=== PATIENT | male | born 1995 | race Caucasian/White ===

== ENCOUNTER 2017-11-08 21:50 | Emergency (ER) | payer SELFPAY ==
[2017-11-08] MEDS ORDERED: FENTANYL CITR 100 MCG/2 ML ONE (23:37)
[2017-11-08] MEDS ORDERED: PANTOPRAZOLE 40 MG INJ ONE (23:37)
[2017-11-08] MEDS ORDERED: NA CHLORIDE 0.9% 1,000 ML ONE (23:37)
[2017-11-08] MEDS ORDERED: ONDANSETRON 4 MG/2 ML VIAL ONE (23:37)
[2017-11-08 23:42] LABS: Absolute Lymphocytes (CBC) 1.8 K/uL (0.7-4.9); Absolute Monocytes 0.3 K/uL (0.1-1.3); Absolute Neutrophil 5.8 K/uL (1.8-8.0); Basophils % 0.9 % (0-1.3); Eosinophils % 5.6 % (0-4.4); Lymphocytes % 21.6 % (15.3-44.8); MCH 32.3 pg (27.0-35.0); MCV 91.2 fL (80-100); MPV 9.7 fL (7.6-11.3); Monocytes % 3.7 % (3.3-12.3); RBC Red Blood Cell Count 4.94 M/uL (4.33-5.43)
[2017-11-08 23:45] LABS: Protime INR 1.01
[2017-11-08 23:50] LABS: Urine Bacteria <20 /HPF (NONE SEEN); Urine RBC NONE SEEN /HPF (NONE SEEN)
[2017-11-08 23:51] LABS: Urine Culture Reflex Order NOT NEEDED
[2017-11-08 23:54] LABS: Barbiturates NEGATIVE (NEGATIVE); Benzodiazepines NEGATIVE (NEGATIVE); Cocaine NEGATIVE (NEGATIVE); METHAMPHETAM NEGATIVE (NEGATIVE); Methadone NEGATIVE (NEGATIVE); Opiates NEGATIVE (NEGATIVE); Phencyclidine NEGATIVE (NEGATIVE); THC Cannibis POSITIVE (NEGATIVE)
[2017-11-09 00:25] LABS: ALT/SGPT 25 U/L (12-78); AST/SGOT 21 U/L (15-37); Albumin 5.2 g/dL (3.4-5.0); Alkaline Phosphatase 63 U/L (45-117); Amylase Level 86 U/L (25-115); BUN Blood Urea Nitrogen 11 mg/dL (7-18); Bicarbonate 33 mmol/L (21-32); Bilirubin Direct 0.2 mg/dL (0-0.2); Bilirubin Total 0.8 mg/dL (0.2-1.0); Glucose Level 98 mg/dL (74-106); Lipase 317 U/L (73-393); Potassium 3.7 mmol/L (3.5-5.1); Sodium Level 141 mmol/L (136-145)
[2017-11-09 00:41] LABS: Alcohol Serum/Plasma < 3 mg/dL (0-3)
--- NOTE | 2017-11-09 00:59 | ER ---
Nurse's Notes [facility] Name: Edward Wilson Age: 22 yrs Sex: Male : 1995 Arrival Date: 11/08/2017 Time: 21:55 Bed 27 Private MD: Diagnosis: Vomiting;Abdominal tenderness;Gastrointestinal hemorrhage, unspecified Presentation: 11/08 23:48 Presenting complaint: Patient states: vomiting blood. Transition of care: patient was tl3 not received from another setting of care. Risk Assessment: Do you want to hurt yourself or someone else? Patient reports no desire to harm self or others. Initial Sepsis Screen: Does the patient meet any 2 criteria? No. Patient's initial sepsis screen is negative. Does the patient have a suspected source of infection? No. Patient's initial sepsis screen is negative. Care prior to arrival: None. 23:48 Method Of Arrival: Ambulatory tl3 23:48 Acuity: PJ 3 tl3 11/09 00:14 Onset of symptoms was November 2017. mg2 Triage Assessment: 11/08 23:50 General: Appears in no apparent distress. uncomfortable, slender, well groomed, well tl3 developed, well nourished, Behavior is calm, cooperative, appropriate for age. 23:51 Pain: Complains of pain in left upper quadrant and right upper quadrant and epigastric tl3 area Pain currently is 6 out of 10 on a pain scale. Historical: - Allergies: 23:50 No Known Allergies; tl3 - Home Meds: 23:50 Seroquel 150 mg oral tab once daily [Active]; tl3 - PSHx: 23:50 None; tl3 - Immunization history:: Adult Immunizations up to date. - Social history:: Smoking status: unknown. - Family history:: not pertinent. - Ebola Screening: : Patient denies travel to an Ebola-affected area in the 21 days before illness onset No symptoms or risks identified at this time. Screenin:51 Abuse screen: Denies threats or abuse. Denies injuries from another. Nutritional mg2 screening: No deficits noted. Tuberculosis screening: No symptoms or risk factors identified. Fall Risk IV access (20 points). Assessment: 23:52 General: Appears in no apparent distress. comfortable, Behavior is calm, cooperative. mg2 Pain: Complains of pain in left upper quadrant and right upper quadrant and epigastric area Pain does not radiate. Pain currently is 6 out of 10 on a pain scale. Quality of pain is described as aching, Pain began gradually, Is intermittent. Neuro: Level of Consciousness is awake, alert, obeys commands, Oriented to person, place, time, situation. Cardiovascular: Capillary refill < 3 seconds Patient's skin is warm and dry. Respiratory: Airway is patent Respiratory effort is even, unlabored, Respiratory pattern is regular, symmetrical. GI: Reports upper abdominal pain, epigastric pain, vomiting. : No signs and/or symptoms were reported regarding the genitourinary system. EENT: No signs and/or symptoms were reported regarding the EENT system. Derm: Skin is intact, Skin is pink, warm \T\ dry. normal. Musculoskeletal: No signs and/or symptoms reported regarding the musculoskeletal system. Vital Signs: 23:50 BP 127 / 59; Pulse 68; Resp 18; Temp 97.8(O); Pulse Ox 98% ; tl3 11/09 00:56 BP 108 / 66; Pulse 59; Resp 18; Pulse Ox 97% on R/A; Pain 2/10; mg2 ED Course: 11/08 21:55 Patient arrived in ED. al2 22:31 Leif Vieira MD is Attending Physician. tootie 23:11 X-ray completed. Portable x-ray completed in exam room. Patient tolerated procedure jw2 well. 23:13 Chest Single View XRAY In Process Unspecified. EDMS 23:26 Sherwin Arellano, RN is Primary Nurse. mg2 23:29 Initial lab(s) drawn, by me, sent to lab. Urine collected: clean catch specimen, clear. bb Inserted saline lock: 20 gauge in right antecubital area, using aseptic technique. Blood collected. 23:48 Triage completed. tl3 23:50 Arm band placed on right wrist. tl3 11/09 00:13 Patient has correct armband on for positive identification. Door closed. Warm blanket mg2 given. 00:58 Brennan Dorado MD is Referral Physician. tootie 01:23 No provider procedures requiring assistance completed. IV discontinued, intact, mg2 bleeding controlled, No redness/swelling at site. Pressure dressing applied. Administered Medications: 11/08 23:43 Drug: Zofran 4 mg Route: IVP; Site: right forearm; bb 11/09 00:56 Follow up: Response: No adverse reaction; Nausea is decreased mg2 11/08 23:44 Drug: NS 0.9% 1000 ml Route: IV; Rate: 1 bolus; Site: right forearm; 11/09 00:57 Follow up: Response: No adverse reaction; IV Status: Completed infusion mg2 11/08 23:44 Drug: ProTONIX 80 mg Route: IVP; Site: right forearm; 11/09 00:57 Follow up: Response: No adverse reaction; Pain is decreased mg2 11/08 23:44 Drug: fentaNYL (PF) 25 mcg Route: IVP; Site: right forearm; 11/09 00:56 Follow up: Response: No adverse reaction; Pain is decreased mg2 Outcome: 00:58 Discharge ordered by . tootie 01:23 Discharged to home ambulatory, with family. mg2 01:23 Condition: stable 01:23 Discharge instructions given to patient, family, Instructed on discharge instructions, follow up and referral plans. medication usage, Demonstrated understanding of instructions, follow-up care, medications, Prescriptions given X 3. 01:24 Patient left the ED. mg2 Signatures: Dispatcher [employer] EDMS Leif Vieira MD MD cha Ballard, Brenda, RN RN Ambreen Uribe2 Shaye Chow al2 Marley Parsons RN RN tl3 Sherwin Arellano RN RN mg2
--- NOTE | 2017-11-09 00:59 | EDPHYS ---
Physician Documentation [facility] Name: Edward Wilson Age: 22 yrs Sex: Male : 1995 Arrival Date: 11/08/2017 Time: 21:55 Bed 27 Private MD: ED Physician Leif Vieira HPI: 11/08 23:03 This 22 yrs old Male presents to ER via Unassigned with complaints of tootie VOMITING BLOOD. 23:03 The patient presents to the emergency department with nausea, vomiting, that is tootie continuous. Onset: The symptoms/episode began/occurred 2 day(s) ago. Possible causes: unknown. The symptoms are aggravated by nothing. The symptoms are alleviated by nothing. The patient presents to the emergency department vomiting blood, a small amount, a moderate amount, bright red. Onset: The symptoms/episode began/occurred today, yesterday. Abdominal pain: described as crampy, sharp. Modifying factors: The symptoms are alleviated by nothing, the symptoms are aggravated by nothing. Associated signs and symptoms: The patient has no apparent associated signs or symptoms. Historical: - Allergies: 23:50 No Known Allergies; tl3 - Home Meds: 23:50 Seroquel 150 mg oral tab once daily [Active]; tl3 - PSHx: 23:50 None; tl3 - Immunization history:: Adult Immunizations up to date. - Social history:: Smoking status: unknown. - Family history:: not pertinent. - Ebola Screening: : Patient denies travel to an Ebola-affected area in the 21 days before illness onset No symptoms or risks identified at this time. ROS: 23:03 Constitutional: Negative for fever, chills, and weight loss, Eyes: Negative for injury, tootie pain, redness, and discharge, ENT: Negative for injury, pain, and discharge, Neck: Negative for injury, pain, and swelling, Cardiovascular: Negative for chest pain, palpitations, and edema, Respiratory: Negative for shortness of breath, cough, wheezing, and pleuritic chest pain, Back: Negative for injury and pain, : Negative for injury, bleeding, discharge, and swelling, MS/Extremity: Negative for injury and deformity, Skin: Negative for injury, rash, and discoloration, Neuro: Negative for headache, weakness, numbness, tingling, and seizure, Psych: Negative for depression, anxiety, suicide ideation, homicidal ideation, and hallucinations, Allergy/Immunology: Negative for hives, rash, and allergies, Endocrine: Negative for neck swelling, polydipsia, polyuria, polyphagia, and marked weight changes, Hematologic/Lymphatic: Negative for swollen nodes, abnormal bleeding, and unusual bruising. 23:03 Abdomen/GI: Positive for abdominal pain, nausea, vomiting. Exam: 23:03 Constitutional: This is a well developed, well nourished patient who is awake, alert, tootie and in no acute distress. Head/Face: Normocephalic, atraumatic. Eyes: Pupils equal round and reactive to light, extra-ocular motions intact. Lids and lashes normal. Conjunctiva and sclera are non-icteric and not injected. Cornea within normal limits. Periorbital areas with no swelling, redness, or edema. ENT: Nares patent. No nasal discharge, no septal abnormalities noted. Tympanic membranes are normal and external auditory canals are clear. Oropharynx with no redness, swelling, or masses, exudates, or evidence of obstruction, uvula midline. Mucous membranes moist. Neck: Trachea midline, no thyromegaly or masses palpated, and no cervical lymphadenopathy. Supple, full range of motion without nuchal rigidity, or vertebral point tenderness. No Meningismus. Chest/axilla: Normal chest wall appearance and motion. Nontender with no deformity. No lesions are appreciated. Cardiovascular: Regular rate and rhythm with a normal S1 and S2. No gallops, murmurs, or rubs. Normal PMI, no JVD. No pulse deficits. Respiratory: Lungs have equal breath sounds bilaterally, clear to auscultation and percussion. No rales, rhonchi or wheezes noted. No increased work of breathing, no retractions or nasal flaring. Back: No spinal tenderness. No costovertebral tenderness. Full range of motion. Male : Normal genitalia with no discharge or lesions. Skin: Warm, dry with normal turgor. Normal color with no rashes, no lesions, and no evidence of cellulitis. MS/ Extremity: Pulses equal, no cyanosis. Neurovascular intact. Full, normal range of motion. Neuro: Awake and alert, GCS 15, oriented to person, place, time, and situation. Cranial nerves II-XII grossly intact. Motor strength 5/5 in all extremities. Sensory grossly intact. Cerebellar exam normal. Normal gait. Psych: Awake, alert, with orientation to person, place and time. Behavior, mood, and affect are within normal limits. 23:03 Abdomen/GI: Inspection: abdomen appears normal, Bowel sounds: normal, Palpation: mild abdominal tenderness, in the epigastric area, right upper quadrant and left upper quadrant, Liver: no appreciated palpable abnormalities, Hernia: not appreciated. Vital Signs: 23:50 BP 127 / 59; Pulse 68; Resp 18; Temp 97.8(O); Pulse Ox 98% ; tl3 11/09 00:56 BP 108 / 66; Pulse 59; Resp 18; Pulse Ox 97% on R/A; Pain 2/10; mg2 MDM: 11/08 22:31 Patient medically screened. [facility] 23:03 Data reviewed: vital signs, nurses notes, lab test result(s), radiologic studies, plain tootie films. 11/08 23:02 Order name: Amylase, Serum [facility] 11/08 23:02 Order name: Basic Metabolic Panel [facility] 11/08 23:02 Order name: CBC with Diff; Complete Time: 23:51 [facility] 11/08 23:02 Order name: Creatinine for Radiology; Complete Time: 00:19 [facility] 11/08 23:02 Order name: Hepatic Function [facility] 11/08 23:02 Order name: Lipase; Complete Time: 00:57 [facility] 11/08 23:02 Order name: Urine Microscopic Only; Complete Time: 00:19 [facility] 11/08 23:02 Order name: Acetaminophen; Complete Time: 00:57 [facility] 11/08 23:02 Order name: ETOH Level; Complete Time: 00:57 [facility] 11/08 23:02 Order name: PT-INR; Complete Time: 23:51 [facility] 11/08 23:02 Order name: Ptt, Activated; Complete Time: 23:51 [facility] 11/08 23:02 Order name: Salicylate; Complete Time: 00:19 [facility] 11/08 23:02 Order name: Urine Drug Screen; Complete Time: 00:19 [facility] 11/08 23:02 Order name: Amylase Level; Complete Time: 00:57 EDMS 11/08 23:02 Order name: IV Saline Lock; Complete Time: 23:30 [facility] 11/08 23:02 Order name: Labs collected and sent; Complete Time: 23:30 [facility] 11/08 23:02 Order name: Urine Dipstick-Ancillary (obtain specimen); Complete Time: 23:30 [facility] 11/08 23:02 Order name: Chest Single View XRAY [facility] 11/08 23:02 Order name: EKG; Complete Time: 23:03 [facility] 11/08 23:02 Order name: EKG - Nurse/Tech; Complete Time: 23:44 [facility] 11/08 23:02 Order name: Basic Metabolic Panel; Complete Time: 00:57 EDMS 11/08 23:03 Order name: Liver (Hepatic) Function; Complete Time: 00:57 EDMS 11/08 23:51 Order name: Urine Dipstick--Ancillary (enter results) rg2 11/08 23:51 Order name: Urine Dipstick-Ancillary EDMS Administered Medications: 23:43 Drug: Zofran 4 mg Route: IVP; Site: right forearm; 11/09 00:56 Follow up: Response: No adverse reaction; Nausea is decreased mg2 11/08 23:44 Drug: NS 0.9% 1000 ml Route: IV; Rate: 1 bolus; Site: right forearm; 11/09 00:57 Follow up: Response: No adverse reaction; IV Status: Completed infusion mg2 11/08 23:44 Drug: ProTONIX 80 mg Route: IVP; Site: right forearm; 11/09 00:57 Follow up: Response: No adverse reaction; Pain is decreased mg2 11/08 23:44 Drug: fentaNYL (PF) 25 mcg Route: IVP; Site: right forearm; 11/09 00:56 Follow up: Response: No adverse reaction; Pain is decreased mg2 Disposition: 11/09/17 00:58 Discharged to Home. Impression: Vomiting, Abdominal tenderness, Gastrointestinal hemorrhage, unspecified. - Condition is Stable. - Discharge Instructions: Abdominal Pain, Adult, Nausea and Vomiting, Gastrointestinal Bleeding, [id number]. - Prescriptions for Bentyl 20 mg Oral Tablet - take 1 tablet by ORAL route every 6 hours As needed; 20 tablet. Protonix 40 mg Oral Tablet - take 1 tablet by ORAL route once daily; 30 tablet. Zofran 4 mg Oral Tablet - take 1 tablet by ORAL route every 12 hours As needed; 20 tablet. - Medication Reconciliation Form, Thank You Letter, Antibiotic Education, Prescription Opioid Use form. - Follow up: Private Physician; When: 2 - 3 days; Reason: Recheck today's complaints, Continuance of care, Re-evaluation by your physician. Follow up: Brennan Dorado; When: 2 - 3 days; Reason: Recheck today's complaints, Re-evaluation by your physician. - Problem is new. - Symptoms have improved. Signatures: Dispatcher [employer] EDLeif Askew MD MD cha Ballard, Brenda, RN RN bb Marley Parsons, RN RN tl3 Sherwin Arellano RN RN mg2 Corrections: (The following items were deleted from the chart) 01:24 00:58 11/09/2017 00:58 Discharged to Home. Impression: Vomiting; Abdominal tenderness; mg2 Gastrointestinal hemorrhage, unspecified. Condition is Stable. Discharge Instructions: Abdominal Pain, Adult, Nausea and Vomiting, Gastrointestinal Bleeding, [id number]. Prescriptions for Bentyl 20 mg Oral Tablet - take 1 tablet by ORAL route every 6 hours As needed; 20 tablet, Protonix 40 mg Oral Tablet - take 1 tablet by ORAL route once daily; 30 tablet, Zofran 4 mg Oral Tablet - take 1 tablet by ORAL route every 12 hours As needed; 20 tablet. and Forms are Medication Reconciliation Form, Thank You Letter, Antibiotic Education, Prescription Opioid Use. Follow up: Private Physician; When: 2 - 3 days; Reason: Recheck today's complaints, Continuance of care, Re-evaluation by your physician. Follow up: Brennan Dorado; When: 2 - 3 days; Reason: Recheck today's complaints, Re-evaluation by your physician. Problem is new. Symptoms have improved. tootie
[2017-11-09 03:54] LABS: Urine Blood NEGATIVE (NEG); Urine Glucose NEGATIVE (NEG); Urine Protein NEGATIVE (NEG); Urine Specific Gravity 1.015 (1.005-1.030); Urine pH 7.5 (5.0-7.0)
--- NOTE | 2017-11-09 10:54 | EKG ---
Test Date: 2017-11-08 Test Time: 23:37:18 National Business Director: JOSE ARMANDO MEASUREMENT RESULTS: Intervals: Rate: 52 [place]: 150 QRSD: 102 QT: 442 QTc: 411 [place]: P: 55 [place]: 150 QRS: 88 T: 52 INTERPRETIVE STATEMENTS: Sinus bradycardia Otherwise normal ECG No previous ECG available for comparison Electronically Signed On 11-09-17 10:53:43 CDT by Hakan Metzger
--- NOTE | 2017-11-09 13:05 | RAD REPORT ---
EXAM DESCRIPTION: RAD - Chest Single View - 11/08/2017 11:12 pm CLINICAL HISTORY: ABDOMINAL DISTENTION Chest pain. COMPARISON: No comparisonsNo comparisons FINDINGS: Portable technique limits examination quality. The lungs are grossly clear. The heart is normal in size. No displaced fractures. IMPRESSION: No acute intrathoracic process suspected.
== END 2017-11-09 01:24 | disposition home or self-care (01) ==
LOC: ER 21:50
DX: K92.2 Gastrointestinal hemorrhage, unspecified (principal); R10.819 Abdominal tenderness, unspecified site
CPT/HCPCS: 36415; 71045; 80048; 80076; 80307; 80320; 80329; 81003; 81015; 82150; 83690; 85025; 85610; 85730; 93005; 96361; 96374; 96375; 99284; C9113; J2405; J3010; J7030